=== PATIENT | female | born 1970 | race Two or more races ===

== ENCOUNTER 2018-05-08 09:30 | Outpatient (CLI) | payer OTHER | END 2018-05-08 09:49 | disposition home or self-care (01) | LOC: NUCLEAR 09:30 | DX: M15.0 Primary generalized (osteo)arthritis (principal) | CPT/HCPCS: 78315; A9503 ==

== ENCOUNTER → 2018-05-12 | Outpatient (CLI) | payer OTHER | END | disposition home or self-care (01) | LOC: MRI 10:45 | DX: I11.9 Hypertensive heart disease without heart failure (principal) ==

== ENCOUNTER 2018-08-20 09:28 | Outpatient (CLI) | payer OTHER | END 2018-08-20 15:00 | disposition home or self-care (01) | LOC: LAB 09:28 | DX: D50.0 Iron deficiency anemia secondary to blood loss (chronic) (principal); D53.8 Other specified nutritional anemias; N92.4 Excessive bleeding in the premenopausal period; E03.8 Other specified hypothyroidism; D50.8 Other iron deficiency anemias; D51.8 Other vitamin B12 deficiency anemias; D55.0 Anemia due to glucose-6-phosphate dehydrogenase [G6PD] deficiency; E06.3 Autoimmune thyroiditis ==

== ENCOUNTER 2018-11-24 08:40 | Outpatient (CLI) | payer OTHER | END 2018-11-24 08:53 | disposition home or self-care (01) | LOC: LAB 08:40 | DX: D50.0 Iron deficiency anemia secondary to blood loss (chronic) (principal); D56.3 Thalassemia minor; D51.1 Vitamin B12 deficiency anemia due to selective vitamin B12 malabsorption with proteinuria; N92.4 Excessive bleeding in the premenopausal period; D56.1 Beta thalassemia; E06.3 Autoimmune thyroiditis; E03.8 Other specified hypothyroidism; D53.8 Other specified nutritional anemias; D50.8 Other iron deficiency anemias; D51.8 Other vitamin B12 deficiency anemias; I10 Essential (primary) hypertension; D68.8 Other specified coagulation defects; K90.89 Other intestinal malabsorption ==

== ENCOUNTER 2019-01-30 07:42 | Emergency (ER) | payer OTHER ==
[~2019-01-30] VITALS: Ht 160 cm; Wt 83.9 kg
[2019-01-30] MEDS ORDERED: SYNTHROID150 MCG (07:57)
[2019-01-30] MEDS ORDERED: FUSION PLUS CA1 EACH (07:58)
[2019-01-30] MEDS ORDERED: COZAAR100 MG (07:58)
[2019-01-30] MEDS ORDERED: [UNRECOGNIZED DRUG - OTHER] (07:58)
[2019-01-30] MEDS ORDERED: GABAPENTIN800 MG (07:58)
[2019-01-30] MEDS ORDERED: NEURIN (07:58)
[2019-01-30] MEDS ORDERED: FLUCONAZOLE200 MG (07:59)
== END 2019-01-30 10:59 | disposition home or self-care (01) ==
LOC: ER 07:42
DX: M79.661 Pain in right lower leg (principal)

== ENCOUNTER 2019-02-10 08:24 | Outpatient (CLI) | payer OTHER ==
[~2019-02-10 08:24] MED LIST: COZAAR100 MG; FLUCONAZOLE200 MG; FUSION PLUS CA1 EACH; GABAPENTIN800 MG; NEURIN; SYNTHROID150 MCG; [UNRECOGNIZED DRUG - OTHER]
== END 2019-02-10 08:27 | disposition home or self-care (01) ==
LOC: NUCLEAR 08:24
DX: I70.213 Atherosclerosis of native arteries of extremities with intermittent claudication, bilateral legs (principal); I73.9 Peripheral vascular disease, unspecified; M79.662 Pain in left lower leg; M79.661 Pain in right lower leg

== ENCOUNTER 2019-02-11 07:43 | Outpatient (CLI) | payer OTHER | END 2019-02-11 07:45 | disposition home or self-care (01) | LOC: NUCLEAR 07:43 | DX: I73.9 Peripheral vascular disease, unspecified (principal); I70.213 Atherosclerosis of native arteries of extremities with intermittent claudication, bilateral legs ==

== ENCOUNTER 2019-03-27 07:58 | Outpatient (CLI) | payer OTHER | END 2019-03-27 09:06 | disposition home or self-care (01) | LOC: LAB 07:58 | DX: D50.0 Iron deficiency anemia secondary to blood loss (chronic) (principal); D51.1 Vitamin B12 deficiency anemia due to selective vitamin B12 malabsorption with proteinuria; N92.4 Excessive bleeding in the premenopausal period; D56.1 Beta thalassemia; E06.3 Autoimmune thyroiditis; E03.8 Other specified hypothyroidism; D53.8 Other specified nutritional anemias; D51.8 Other vitamin B12 deficiency anemias; I10 Essential (primary) hypertension; E78.2 Mixed hyperlipidemia; K90.89 Other intestinal malabsorption; I70.213 Atherosclerosis of native arteries of extremities with intermittent claudication, bilateral legs; I73.89 Other specified peripheral vascular diseases; D47.2 Monoclonal gammopathy; D50.8 Other iron deficiency anemias ==

== ENCOUNTER 2019-03-30 11:04 | Emergency (ER) | payer OTHER ==
[~2019-03-30] VITALS: Ht 160 cm; Wt 83.9 kg
[2019-03-30] MEDS ORDERED: DAFLONEX-XL 11300 MG (11:25)
== END 2019-03-30 13:53 | disposition home or self-care (01) ==
LOC: ER 11:04
DX: M25.562 Pain in left knee (principal)

== ENCOUNTER 2019-09-01 09:21 | Outpatient (CLI) | payer OTHER ==
[~2019-09-01 09:21] MED LIST changes: +DAFLONEX-XL 11300 MG
== END 2019-09-01 09:35 | disposition home or self-care (01) ==
LOC: LAB 09:21
DX: D50.0 Iron deficiency anemia secondary to blood loss (chronic) (principal); N92.4 Excessive bleeding in the premenopausal period; D56.1 Beta thalassemia; E06.3 Autoimmune thyroiditis; E03.8 Other specified hypothyroidism; I70.213 Atherosclerosis of native arteries of extremities with intermittent claudication, bilateral legs; I73.89 Other specified peripheral vascular diseases; D50.8 Other iron deficiency anemias; D51.8 Other vitamin B12 deficiency anemias; E55.9 Vitamin D deficiency, unspecified; K90.89 Other intestinal malabsorption; I11.9 Hypertensive heart disease without heart failure; R73.09 Other abnormal glucose

== ENCOUNTER → 2020-03-15 | Outpatient (CLI) | payer OTHER | END | disposition home or self-care (01) | LOC: MAMO-SONO 11:07 → RAD 11:07 → MAMO-SONO 11:15 | PROVIDERS: ATTEND Internal Medicine Hematology & Oncology | DX: D50.0 Iron deficiency anemia secondary to blood loss (chronic) (principal); D51.1 Vitamin B12 deficiency anemia due to selective vitamin B12 malabsorption with proteinuria; N92.4 Excessive bleeding in the premenopausal period; D56.1 Beta thalassemia; E06.3 Autoimmune thyroiditis; E03.8 Other specified hypothyroidism; D53.8 Other specified nutritional anemias; I70.213 Atherosclerosis of native arteries of extremities with intermittent claudication, bilateral legs; I73.89 Other specified peripheral vascular diseases; N63.10 Unspecified lump in the right breast, unspecified quadrant; N63.20 Unspecified lump in the left breast, unspecified quadrant; Z12.31 Encounter for screening mammogram for malignant neoplasm of breast ==

== ENCOUNTER → 2020-03-23 | Outpatient (CLI) | payer OTHER | END | disposition home or self-care (01) | LOC: NUCLEAR 08:36 | DX: I73.9 Peripheral vascular disease, unspecified (principal); M79.661 Pain in right lower leg; M79.662 Pain in left lower leg; M25.50 Pain in unspecified joint; M89.8X8 Other specified disorders of bone, other site | CPT/HCPCS: 78315; A9503; 93925; 93922 ==

== ENCOUNTER 2020-03-24 09:00 | Outpatient (CLI) | payer OTHER | END 2020-03-24 09:16 | disposition home or self-care (01) | LOC: NUCLEAR 09:00 | DX: I73.9 Peripheral vascular disease, unspecified (principal); M79.662 Pain in left lower leg; M79.661 Pain in right lower leg ==

== ENCOUNTER 2022-10-29 07:12 | Outpatient (CLI) | payer OTHER | END 2022-10-29 07:16 | disposition home or self-care (01) | LOC: NUCLEAR 07:12 | DX: M79.662 Pain in left lower leg (principal); M79.661 Pain in right lower leg; R06.9 Unspecified abnormalities of breathing ==

== ENCOUNTER 2022-11-21 07:20 | Outpatient (CLI) | payer OTHER | END 2022-11-21 07:21 | disposition home or self-care (01) | LOC: NUCLEAR 07:20 | DX: M89.8X9 Other specified disorders of bone, unspecified site (principal) | CPT/HCPCS: 78315; A9503 ==

== ENCOUNTER 2023-03-18 08:25 | Outpatient (CLI) | payer OTHER | END 2023-03-18 08:38 | disposition home or self-care (01) | LOC: SONOGRAMA 08:25 | DX: R80.9 Proteinuria, unspecified (principal) ==

== ENCOUNTER → 2024-03-07 | Emergency (ER) | payer OTHER ==
[~2024-03-07] VITALS: Ht 160 cm; Wt 81.6 kg
[~2024-03-07] MED LIST changes: +TRAMADOL HCL 50 MG TABLET PO ONE
== END | disposition home or self-care (01) ==
LOC: ER 07:00
DX: M25.562 Pain in left knee (principal); G89.4 Chronic pain syndrome; Z88.8 Allergy status to other drugs, medicaments and biological substances; E78.00 Pure hypercholesterolemia, unspecified; E03.8 Other specified hypothyroidism; I10 Essential (primary) hypertension; M17.12 Unilateral primary osteoarthritis, left knee

== ENCOUNTER 2024-05-13 07:07 | Outpatient (CLI) | payer OTHER ==
[~2024-05-13 07:07] MED LIST changes: -TRAMADOL HCL 50 MG TABLET PO ONE
== END 2024-05-13 09:12 | disposition home or self-care (01) ==
LOC: MAMO-SONO 07:07
DX: Z12.39 Encounter for other screening for malignant neoplasm of breast (principal); Z12.31 Encounter for screening mammogram for malignant neoplasm of breast

== ENCOUNTER 2024-05-21 12:45 | Outpatient (CLI) | payer OTHER | END 2024-05-21 12:47 | disposition home or self-care (01) | LOC: NUCLEAR 12:45 | PROVIDERS: ATTEND Specialist | DX: M85.89 Other specified disorders of bone density and structure, multiple sites (principal) ==

== ENCOUNTER 2024-05-27 07:35 | Outpatient (CLI) | payer OTHER | END 2024-05-27 07:38 | disposition home or self-care (01) | LOC: NUCLEAR 07:35 | DX: I73.9 Peripheral vascular disease, unspecified (principal); I87.2 Venous insufficiency (chronic) (peripheral) ==

== ENCOUNTER 2024-05-28 07:28 | Outpatient (CLI) | payer OTHER | END 2024-05-28 07:29 | disposition home or self-care (01) | LOC: NUCLEAR 07:28 | DX: I73.9 Peripheral vascular disease, unspecified (principal); I87.2 Venous insufficiency (chronic) (peripheral) ==

== ENCOUNTER 2024-07-05 09:58 | Outpatient (CLI) | payer OTHER | END 2024-07-05 10:01 | disposition home or self-care (01) | LOC: TOM 09:58 | DX: M25.562 Pain in left knee (principal); M25.561 Pain in right knee ==